=== PATIENT | male | born 1985 | race Caucasian/White ===

== ENCOUNTER 2020-01-24 19:47 | Emergency (ER) | payer OTHER ==
[~2020-01-24] VITALS: Ht 177.8 cm; Wt 106.8 kg
[2020-01-24] MEDS ORDERED: LORazepam 1 MG TABLET PO ONE (21:00)
[2020-01-24 22:31] VITALS: BP 135/77
== END 2020-01-24 22:48 | disposition home or self-care (01) ==
LOC: EMS 19:48
DX: F41.9 Anxiety disorder, unspecified (principal); T40.7X5A Adverse effect of cannabis (derivatives), initial encounter; Y92.89 Other specified places as the place of occurrence of the external cause